=== PATIENT | female | born 1995 | race Caucasian/White ===

== ENCOUNTER 2020-01-29 06:32 | Day surgery (SDC) | payer OTHER ==
[~2020-01-29] VITALS: Ht 175.3 cm; Wt 63.6 kg
[2020-01-29] MEDS ORDERED: SODIUM CHLORIDE 0.9% 1,000 ML IV SCH (06:48)
[2020-01-29 06:56] VITALS: BP 126/90
[2020-01-29] MEDS ORDERED: FLEC50TA25 PO (07:00)
[2020-01-29] MEDS ORDERED: ASCO500T8 PO (07:00)
[2020-01-29] MEDS ORDERED: Vitamin D3 PO (07:00)
[2020-01-29] MEDS ORDERED: NORE1TAB11 PO (07:00)
[2020-01-29] MEDS ORDERED: SUMA100T4 PO (07:00)
[2020-01-29] MEDS ORDERED: LIDOCAINE 1%, 20ML ONE (07:33)
[2020-01-29] MEDS ORDERED: ISOPROTERENOL 0.2MG/ML, 5ML ONE (07:36)
[2020-01-29] MEDS ORDERED: MIDAZOLAM 1 MG/ML, 2ML ONE (07:36)
[2020-01-29] MEDS ORDERED: FENTANYL PF 100 MCG/2ML ONE (07:37)
[2020-01-29] MEDS ORDERED: FLECAINIDE 100MG TABLET PO PRN (09:45)
[2020-01-29] MEDS ORDERED: FLECAINIDE 50MG TABLET PO PRN (09:45)
== END 2020-01-29 14:05 | disposition home or self-care (01) ==
LOC: CACL 06:32
PROVIDERS: ATTEND Internal Medicine Clinical Cardiac Electrophysiology
DX: R00.2 Palpitations (principal); I47.1 Supraventricular tachycardia; I48.91 Unspecified atrial fibrillation
CPT/HCPCS: 93005; 93653; C1730; C1894; J2250; J3010

== ENCOUNTER → 2020-04-15 | Outpatient (CLI) | payer OTHER ==
[~2020-04-15] MED LIST: ASCO500T8 PO; FLEC50TA25 PO; NORE1TAB11 PO; SUMA100T4 PO; Vitamin D3 PO
[2020-04-15 14:09] LABS: BASOPHILS % (AUTO) 1 % (0-1); EOSINOPHILS % (AUTO) 1 % (1-7); LYMPHOCYTES % (AUTO) 28 % (22-44); MEAN CORPUSCULAR HGB CONC 33.3 g/dL (32.4-35.8); MEAN PLATELET VOLUME 8.2 fL (7.4-10.4); MONOCYTES % (AUTO) 5 % (2-9); NEUTROPHILS % (AUTO) 66 % (42-75); PLATELET COUNT 335 x10^3/uL (130-400); RED BLOOD COUNT 4.44 x10^6/uL (3.82-5.3); RED CELL DISTRIBUTION WIDTH 12.6 % (9.6-15.2)
[2020-04-15 14:11] LABS: MD NO
[2020-04-15 14:22] LABS: ANION GAP 4 mmol/L (5-15); CALCIUM 8.9 mg/dL (8.5-10.1); CHLORIDE 108 mmol/L (98-107)
[2020-04-15 14:32] LABS: INTERNATIONAL NORMALIZED RATIO 1.01 (0.93-1.1); PROTHROMBIN TIME 10.7 Seconds (9.6-11.5)
== END | disposition home or self-care (01) ==
LOC: STAR 13:17
PROVIDERS: ATTEND Internal Medicine Clinical Cardiac Electrophysiology
DX: Z20.828 Contact with and (suspected) exposure to other viral communicable diseases (principal)
CPT/HCPCS: 36415; 80048; 84703; 85025; 85610; 85730; 87635

== ENCOUNTER 2020-04-22 06:12 | Observation (INO) | payer OTHER ==
[~2020-04-22] VITALS: Ht 152.4 cm; Wt 64.0 kg
[2020-04-22] MEDS ORDERED: SODIUM CHLORIDE 0.9% 1,000 ML IV SCH ×2 (06:30)
[2020-04-22 06:33] VITALS: BP 123/87
[2020-04-22] MEDS ORDERED: LIDOCAINE 2%, 20ML ONE (07:26)
[2020-04-22] MEDS ORDERED: PROPOFOL 50 ML ONE ×2 (07:33→11:31)
[2020-04-22] MEDS ORDERED: FENTANYL PF 250 MCG/5ML ONE (07:34)
[2020-04-22] MEDS ORDERED: MIDAZOLAM 1 MG/ML, 2ML ONE (07:34)
[2020-04-22] MEDS ORDERED: ISOPROTERENOL 0.2MG/ML, 5ML ONE (08:59)
[2020-04-22] MEDS ORDERED: SUCCINYLCHOLINE 20 MG/ML, 10ML ONE (10:06)
[2020-04-22] MEDS ORDERED: ROCURONIUM 10MG/ML,5ML ONE (10:06)
[2020-04-22] MEDS ORDERED: LABETALOL 5MG/ML, 20ML IV PRN (11:00)
[2020-04-22] MEDS ORDERED: DIPHENHYDRAMINE 50 MG/ML, 1ML IVPush PRN (11:00)
[2020-04-22] MEDS ORDERED: MEPERIDINE/PF 25MG/0.5ML IVPush PRN (11:00)
[2020-04-22] MEDS ORDERED: PROMETHAZINE 25 MG/ML, 1ML IVPush PRN (11:00)
[2020-04-22] MEDS ORDERED: FENTANYL PF 100 MCG/2ML IV PRN (11:00)
[2020-04-22] MEDS ORDERED: MIDAZOLAM 1 MG/ML, 2ML IV PRN (11:00)
[2020-04-22] MEDS ORDERED: ONDANSETRON 2MG/ML, 2ML IVPush PRN ×2 (11:00→14:00)
[2020-04-22] MEDS ORDERED: METOCLOPRAMIDE 5 MG/ML, 2ML IVPush PRN (11:00)
[2020-04-22] MEDS ORDERED: EPHEDRINE 50 MG/ML, 1ML IVPush PRN (11:00)
[2020-04-22] MEDS ORDERED: HYDROmorphone 1 MG/ML, 1ML INJ IVPush PRN (11:00)
[2020-04-22] MEDS ORDERED: EPHEDRINE 50 MG/ML, 1ML IM PRN (11:00)
[2020-04-22] MEDS ORDERED: ACETAMINOPHEN 325 MG TABLET PO PRN (11:00)
[2020-04-22] MEDS ORDERED: OXYcodone 5 MG/5 ML ORAL.SOL UDC PO PRN (11:00)
[2020-04-22] MEDS ORDERED: DIAZEPAM 5 MG/ML, 2ML IVPush PRN (11:00)
[2020-04-22] MEDS ORDERED: DEXAMETHASONE 4 MG/ML, 1ML ONE (13:42)
[2020-04-22] MEDS ORDERED: ONDANSETRON 2MG/ML, 2ML ONE (13:42)
[2020-04-22] MEDS ORDERED: ZOLPIDEM 5MG TABLET PO PRN (14:00)
[2020-04-22] MEDS ORDERED: SUMATRIPTAN 100 MG TABLET PO PRN (14:00)
[2020-04-22] MEDS ORDERED: MEPERIDINE/PF 25MG/ML,1ML ONE (14:50)
[2020-04-22] MEDS ORDERED: APIXABAN 5 MG TABLET ONE (14:56)
[2020-04-22] MEDS ORDERED: APIXABAN 5 MG TABLET PO ONE (15:00)
[2020-04-22 15:55] VITALS: BP 110/74
[2020-04-22 19:57] VITALS: BP 112/75
[2020-04-22] MEDS: APIXABAN 5 MG TABLET PO SCH (20:38)
[2020-04-22] MEDS: COLCHICINE 0.6 MG CAPSULE PO SCH (20:38)
[2020-04-23 03:16] VITALS: BP 111/73
[2020-04-23] MEDS ORDERED: PANTOPRAZOLE 40MG TABLET PO SCH (06:00)
[2020-04-23 07:23] VITALS: BP 121/79
[2020-04-23] MEDS ORDERED: COLC0.6C3 PO (08:31)
[2020-04-23] MEDS ORDERED: PANT40TA3 PO (08:31)
[2020-04-23] MEDS ORDERED: APIX5TAB PO (08:31)
[2020-04-23] MEDS: COLCHICINE 0.6 MG CAPSULE PO SCH (08:44)
[2020-04-23] MEDS: APIXABAN 5 MG TABLET PO SCH (08:45)
[2020-04-23] MEDS ORDERED: ASCORBIC ACID 500 MG TABLET PO SCH (09:00)
== END 2020-04-23 10:21 | disposition home or self-care (01) ==
LOC: CACL 06:12 → ORIP 13:53 → 5SO 15:50 → DCLOUNGE 04-23 10:12
PROVIDERS: ADMIT Internal Medicine Clinical Cardiac Electrophysiology; ATTEND Internal Medicine Clinical Cardiac Electrophysiology
DX: I48.0 Paroxysmal atrial fibrillation (principal); I47.1 Supraventricular tachycardia; Z79.899 Other long term (current) drug therapy
CPT/HCPCS: 85347; 93306; 93312; 93321; 93325; 93613; 93623; 93655; 93656; 93662; C1730; C1732; C1759; C1766; C1893; C1894; G0378; J0330; J1100; J2175; J2250; J2405; J2704; J3010; J3490